=== PATIENT | male | born 1960 | race African-American/Black ===

== ENCOUNTER 2018-08-28 14:42 | Inpatient (IN) | payer OTHER ==
[2018-08-28 15:42] VITALS: BMI 25.9
--- NOTE | 2018-08-28 16:35 | HP ---
"COWS - Scale Resting Pulse: 0= DC 80 or Below Sweatin=Flushed/Facial Moisture Restless Observation: 1= Difficult to Sit Still Pupil Size: 2= Moderately Dilated Bone or Joint Aches: 1= Mild Discomfort Runny Nose/ Eye Tearin= Runny Nose/Eyes GI Upset > 30mins: 0= None Tremor Observation: 2= Slight Tremor Visible Yawning Observation: 1= 1-2x During Session Anxiety or Irritability: 1=Feels Anxious/Irritable Goose Flesh Skin: 0=Smooth Skin COWS Score: 12 CIWA Score - Admission Criteria OASAS Guidelines: Admission for Medically Managed Detox: Requires at least one of the followin. CIWA greater than 12 2. Seizures within the past 24 hours 3. Delirium tremens within the past 24 hours 4. Hallucinations within the past 24 hours 5. Acute intervention needed for co occurring medical disorder 6. Acute intervention needed for co occurring psychiatric disorder 7. Severe withdrawal that cannot be handled at a lower level of care (continued vomiting, continued diarrhea, abnormal vital signs) requiring intravenous medication and/or fluids 8. Admission ROS [facility] Chief Complaint: Having withdrawals from heroin. Allergies/Adverse Reactions: Allergies Allergy/AdvReac Type Severity Reaction Status Date / Time pork derived (porcine) Allergy Unknown Rash Verified 08/28/18 15:34 No Known Drug Allergies Allergy Verified 08/28/18 15:34 History of Present Illness: 57 yom states here for heroin detox. Last in [facility] in 2014. Heroin use began at age 10. Approx 3 bundles/day x past 6-7 months. Uses IV. States does not share needles or works. Cocaine use began at age 13. Uses approx 1 bag/ day IV. Nicotine use began at age 11. Denies alcohol use. Denies hx overdoses, seizures or blackouts. Does not have a Narcan Kit at home but willing to accept. PMHx: HTN - last took meds 2 days ago. MHHx: Depression. Denies thoughts of harming self or others. Last visit w/ MH Provider 2012. Search Terms: Carlos Teja, 1960 Search Date: 08/28/2018 04:29:19 PM The Drug Utilization Report below displays all of the controlled substance prescriptions, if any, that your patient has filled in the last twelve months. The information displayed on this report is compiled from pharmacy submissions to the Department, and accurately reflects the information as submitted by the pharmacies. This report was requested by: Yareli Reeves | Reference #: [id number] There are no results for the search terms that you entered. Exam Limitations: No Limitations - Ebola screening Have you traveled outside of the country in the last 21 days: No Have you had contact with anyone from an Ebola affected area: No Have you been sick,other than usual withdrawal symptoms: No (Denies recent exposure to measles) Do you have a fever: No - Review of Systems Constitutional: Chills, Changes in sleep (Difficulty staying asleep) EENT: reports: Nose Congestion Respiratory: reports: Cough (x 3 days - states productive of phlegm. States took an antibiotic) Cardiac: reports: No Symptoms Reported GI: reports: No Symptoms Reported : reports: No Symptoms Reported Musculoskeletal: reports: Joint Pain (Occ achy knees.) Integumentary: reports: Other (TTrack maldonado) Neuro: reports: No Symptoms reported Endocrine: reports: No Symptoms Reported Hematology: reports: No Symptoms Reported Psychiatric: reports: Judgement Intact, Orientated x3 (Missed date by 1 day), Agitated, Depressed (Denies thoughts of harming self or others) Patient History - Patient Medical History Hx Anemia: No Hx Asthma: No Hx Chronic Obstructive Pulmonary Disease (COPD): No Hx Cancer: No Hx Cardiac Disorders: No Hx Congestive Heart Failure: No Hx Hypertension: Yes Hx Hypercholesterolemia: No Hx Pacemaker: No HX Cerebrovascular Accident: No Hx Seizures: No Hx Dementia: No Hx Diabetes: No Hx Gastrointestinal Disorders: No Hx Liver Disease: No Hx Genitourinary Disorders: No Hx Sexually Transmitted Disorders: No Hx Renal Disease (ESRD): No Hx Thyroid Disease: No Hx Human Immunodeficiency Virus (HIV): No Hx Hepatitis C: Yes (TREATED) Hx Depression: No Hx Suicide Attempt: No Hx Bipolar Disorder: No Hx Schizophrenia: No - Patient Surgical History Past Surgical History: No Hx Neurologic Surgery: No Hx Cataract Extraction: No Hx Cardiac Surgery: No Hx Lung Surgery: No Hx Breast Surgery: No Hx Breast Biopsy: No Hx Abdominal Surgery: No Hx Appendectomy: No Hx Cholecystectomy: No Hx Genitourinary Surgery: No Hx Section: No Hx Orthopedic Surgery: No Anesthesia Reaction: No - PPD History Previous Implant?: Yes Documented Results: Positive w/o proof (States Rx'd w/ INH in 1992) PPD to be Administered?: No - Smoking Cessation Smoking history: Current every day smoker Have you smoked in the past 12 months: Yes Aproximately how many cigarettes per day: 10 Hx Chewing Tobacco Use: No Initiated information on smoking cessation: Yes 'Breaking Loose' booklet given: 08/28/18 - Substance & Tx. History Hx Alcohol Use: No Hx Substance Use: Yes Substance Use Type: Cocaine, Heroin Hx Substance Use Treatment: Yes (deto, rehab, Past MMTP in 2011) - Substances abused Heroin Substance route: Injection Frequency: Daily Amount used: 3 BUNDLES Age of first use: 10 Date of last use: 08/27/18 Cocaine Substance route: Injection Frequency: Daily Family Disease History - Family Disease History Family Disease History: Heart Disease: Father (HTN), Mother (HTN), Brother (HTN) , Sister (HTN) Admission Physical Exam [facility] - Vital Signs Vital Signs: Vital Signs - 24 hr 08/28/18 08/28/18 15:31 16:16 Temperature 97.6 F 97.6 F Pulse Rate 71 71 Respiratory 20 20 Rate Blood Pressure 165/105 H 165/105 H - Physical General Appearance: Yes: Mild Distress, Sweating (Increased facial moisture) HEENTM: Yes: EOMI (Jerking movements of eyes on lateral gaze), Hearing grossly Normal, Normocephalic, Normal Voice, CHRISTIAN (Pupils = 3 mm), Pharynx Normal Respiratory: Yes: Lungs Clear, Normal Breath Sounds, No Respiratory Distress, Other (Cough productive of yellowish phlegm) Neck: Yes: No masses,lesions,Nodules, Supple Breast: Yes: Breast Exam Deferred Cardiology: Yes: Regular Rate, Murmur Abdominal: Yes: Non Tender, Soft, Increased Bowel Sounds Genitourinary: Yes: Within Normal Limits Back: Yes: Normal Inspection Musculoskeletal: Yes: full range of Motion, Gait Steady Extremities: Yes: Normal Capillary Refill, Tremors (Mild tremors) Neurological: Yes: evp and chief operating officer II-XII NML intact (Jerking movements of eyes on lateral gaze), Fully Oriented, Alert, Motor Strength 5/5, Normal Mood/Affect Integumentary: Yes: Normal Color, Warm, Track Maldonado (Old and new track maldonado) Lymphatic: Yes: Within Normal Limits - Diagnostic (1) Cocaine use disorder Current Visit: Yes Status: Acute (2) Murmur, cardiac Current Visit: Yes Status: Acute (3) History of positive PPD Current Visit: Yes Status: Acute (4) Cough Current Visit: Yes Status: Acute (5) Nystagmus Current Visit: Yes Status: Acute (6) Essential hypertension Current Visit: No Status: Active (7) Nicotine dependence Current Visit: No Status: Acute (8) Opioid dependence with withdrawal Current Visit: No Status: Acute (9) Abnormal EKG Current Visit: Yes Status: Acute Comment: Occ PVC's. (L) VH, Prolonged QT, Cleared for Admission S - Detox or Rehab [facility] Level of Care: Medically Managed Detox Regimen/Protocol: Methadone Claeared for Rehab Admission: No Breathalyzer - Breathalyzer Breathalyzer: 0 Urine Drug Screen - Test Device Lot number: [id number] Expiration date: 05/21/20 - Control Is test valid?: Yes - Results Drug screen NEGATIVE: No Urine drug screen results: KUMAR-Cocaine, FEN-Fentanyl, MOP-Opiates, OXY-Oxycodone Inpatient Rehab Admission - Rehab Decision to Admit Inpatient rehab admission?: No"
[2018-08-28] MEDS ORDERED: IBUPROFEN 400 MG TABLET (FP) PO PRN (17:01)
[2018-08-28] MEDS ORDERED: MAGNESIUM HYDROX 2400MG/30ML ORAL SUSPENSION 30 ML CUP PO PRN (17:01)
[2018-08-28] MEDS ORDERED: METHOCARBAMOL 500 MG TABLET PO PRN (17:01)
[2018-08-28] MEDS ORDERED: MAG HYDROX/AL HYDROX/SIMETH 30 ML UNIT-DOSE CUP PO PRN (17:01)
[2018-08-28] MEDS ORDERED: BISMUTH SUBSALICYLATE 524 MG/30 ML UD PO PRN (17:01)
[2018-08-28] MEDS ORDERED: NICOTINE POLACRILEX 2 MG GUM BUC PRN (17:01)
[2018-08-28] MEDS ORDERED: MENTHOL/PHENOL 1 EACH UD MM PRN (17:01)
[2018-08-28] MEDS ORDERED: PROCHLORPERAZINE MALEATE 5 MG TABLET PO PRN (17:01)
[2018-08-28] MEDS ORDERED: MAGNESIUM CITRATE 300 ML BOTTLE PO PRN (17:01)
[2018-08-28] MEDS ORDERED: ACETAMINOPHEN 325 MG TABLET (FP) PO PRN ×2 (17:01)
[2018-08-28] MEDS ORDERED: MELATONIN 5 MG TABLETS PO PRN (17:01)
[2018-08-28] MEDS ORDERED: METHADONE HCL 10 MG TABLET (FOR DETOX USE ONLY) PO ONE ×2 (18:15→23:00)
[2018-08-28] MEDS ORDERED: cloNIDine HCL 0.1 MG TABLET PO ONE (18:15)
[2018-08-28] MEDS: guaiFENesin 200 MG/10 ML 10 ML UNIT-DOSE CUPS PO SCH ×2 (18:41→23:06)
[2018-08-28] MEDS: THIAMINE HCL 100 MG TABLET (FP) PO SCH (23:07)
[2018-08-29] MEDS: guaiFENesin 200 MG/10 ML 10 ML UNIT-DOSE CUPS PO SCH ×4 (07:13→23:20)
[2018-08-29] MEDS ORDERED: METHADONE HCL 10 MG TABLET (FOR DETOX USE ONLY) PO ONE (10:00)
[2018-08-29] MEDS ORDERED: cloNIDine HCL 0.1 MG TABLET PO SCH (10:00)
[2018-08-29] MEDS ORDERED: LISINOPRIL 10 MG TABLET (FP) PO SCH (10:00)
[2018-08-29] MEDS: PRENATAL VITAMINS W/ FOLIC ACID TABLET (FP) PO SCH (10:43)
[2018-08-29] MEDS: amLODIPine BESYLATE 10 MG TABLET (FP) PO SCH (10:43)
[2018-08-29] MEDS: NICOTINE 14 MG/24 HOURS TOPICAL PATCH TD SCH (10:44)
[2018-08-29] MEDS: clonazePAM 0.5 MG TABLET PO PRN ×2 (10:48→17:50)
[2018-08-29 11:39] LABS: HEMATOCRIT 36.2 % (35.4-49); HEMOGLOBIN 12.4 GM/dL (11.7-16.9); MCH 31.8 pg (25.7-33.7); MCHC 34.4 g/dl (32.0-35.9); MEAN CELL VOLUME 92.6 fl (80-96); MEAN PLT VOLUME 7.2 fl (7.5-11.1); PLATELET COUNT 266 K/MM3 (134-434); RBC 3.91 M/mm3 (4.00-5.60); RDW 12.5 % (11.9-15.9); WHITE BLOOD COUNT 7.6 K/mm3 (4.0-10.0)
[2018-08-29 11:41] LABS: BILIRUBIN,TOTAL 0.6 mg/dL (0.2-1); CALCIUM 8.7 mg/dL (8.5-10.1); CREATININE 0.9 mg/dL (0.55-1.3); POTASSIUM 3.6 mmol/L (3.5-5.1); TOT PROT 6.9 g/dl (6.4-8.2)
--- NOTE | 2018-08-29 17:32 | PN ---
BHS COWS - Scale Resting Pulse: 0= MS 80 or Below Sweatin= Chills/Flushing Restless Observation: 0= Sits Still Pupil Size: 0= Normal to Room Light Bone or Joint Aches: 0= None Runny Nose/ Eye Tearin= None GI Upset > 30mins: 1= Stomach Cramp Tremor Observation of Outstretched Hands: 2= Slight Tremor Visible Yawning Observation: 2= >3x During Session Anxiety or Irritability: 2=Irritable/Anxious Goose Flesh Skin: 3=Piloerection COWS Score: 11 S Progress Note (SOAP) Subjective: Fatigue, Sweating, Tremors. Objective: PATIENT A & O X 3. IN NO ACUTE DISTRESS. PATIENT DENIES CHEST PAIN AND DIZZINESS. 08/29/18 17:33 Vital Signs Temperature 97.4 F L 08/29/18 16:00 Pulse Rate 53 L 08/29/18 16:00 Respiratory Rate 18 08/29/18 16:00 Blood Pressure 196/97 H 08/29/18 16:00 O2 Sat by Pulse Oximetry (%) Laboratory Tests 08/29/18 08/29/18 08/29/18 08:00 08:00 08:00 WBC 7.6 RBC 3.91 L Hgb 12.4 Hct 36.2 D MCV 92.6 MCH 31.8 MCHC 34.4 RDW 12.5 Plt Count 266 MPV 7.2 L Sodium 142 Potassium 3.6 Chloride 106 Carbon Dioxide 31 Anion Gap 6 L BUN 10 Creatinine 0.9 Est GFR (CKD-EPI)AfAm 107.97 Est GFR (CKD-EPI)NonAf 93.16 Random Glucose 84 Calcium 8.7 Total Bilirubin 0.6 AST 17 ALT 17 Alkaline Phosphatase 96 Total Protein 6.9 Albumin 3.0 L RPR Titer Nonreactive LABS NOTED. Assessment: 08/29/18 17:39 WITHDRAWAL SYMPTOMS. HYPERTENSION. Plan: CONTINUE DETOX. INCREASE LISINOPRIL 10 10 MG PO BID FOR ELEVATED BP DESPITE TREATMENT. INCREASE CLONIDINE TO 0.3 MG PO DAILY FOR ELEVATED BP DESPITE TREATMENT.
[2018-08-29] MEDS ORDERED: cloNIDine HCL 0.1 MG TABLET PO ONE (17:38)
[2018-08-29] MEDS: THIAMINE HCL 100 MG TABLET (FP) PO SCH (23:16)
[2018-08-29] MEDS: LISINOPRIL 10 MG TABLET (FP) PO SCH (23:16)
[2018-08-30] MEDS: guaiFENesin 200 MG/10 ML 10 ML UNIT-DOSE CUPS PO SCH ×2 (05:57→10:28)
[2018-08-30] MEDS ORDERED: METHADONE HCL 10 MG TABLET (FOR DETOX USE ONLY) PO ONE (10:00)
[2018-08-30] MEDS ORDERED: cloNIDine HCL 0.1 MG TABLET PO SCH (10:00)
[2018-08-30] MEDS: NICOTINE 14 MG/24 HOURS TOPICAL PATCH TD SCH (10:28)
[2018-08-30] MEDS: clonazePAM 0.5 MG TABLET PO PRN ×2 (10:28→17:10)
[2018-08-30] MEDS: PRENATAL VITAMINS W/ FOLIC ACID TABLET (FP) PO SCH (10:28)
[2018-08-30] MEDS: LISINOPRIL 10 MG TABLET (FP) PO SCH (10:28)
[2018-08-30] MEDS: amLODIPine BESYLATE 10 MG TABLET (FP) PO SCH (10:28)
--- NOTE | 2018-08-30 12:27 | EKG ---
Test Reason : Blood Pressure : / mmHG Vent. Rate : 060 BPM Atrial Rate : 060 BPM P-R Int : 144 ms QRS Dur : 094 ms QT Int : 494 ms P-R-T Axes : 053 036 003 degrees QTc Int : 494 ms SINUS RHYTHM WITH OCCASIONAL PREMATURE VENTRICULAR COMPLEXES VOLTAGE CRITERIA FOR LEFT VENTRICULAR HYPERTROPHY PROLONGED QT ABNORMAL ECG WHEN COMPARED WITH ECG OF 15-FEB-2015 08:55, PREMATURE VENTRICULAR COMPLEXES ARE NOW PRESENT NON-SPECIFIC CHANGE IN ST SEGMENT IN ANTERIOR LEADS NONSPECIFIC T WAVE ABNORMALITY NO LONGER EVIDENT IN LATERAL LEADS Confirmed by LISSY WEAVER MD ([id number]) on 08/30/2018 12:27:00 PM Referred By: Confirmed By:LISSY WEAVER MD
[2018-08-30] MEDS ORDERED: guaiFENesin 200 MG/10 ML 10 ML UNIT-DOSE CUPS PO PRN (13:22)
--- NOTE | 2018-08-30 13:24 | PN ---
BHS COWS - Scale Resting Pulse: 0= NC 80 or Below Sweatin= Chills/Flushing Restless Observation: 1= Difficult to Sit Still Pupil Size: 0= Normal to Room Light Bone or Joint Aches: 1= Mild Discomfort Runny Nose/ Eye Tearin= Nasal Congestion GI Upset > 30mins: 1= Stomach Cramp Tremor Observation of Outstretched Hands: 1= Tremor [place], Not Seen Yawning Observation: 1= 1-2x During Session Anxiety or Irritability: 1=Feels Anxious/Irritable Goose Flesh Skin: 0=Smooth Skin COWS Score: 8 S Progress Note (SOAP) Subjective: feeling better today doing well with methadone detox regimen Objective: 08/30/18 13:25 Vital Signs Temperature 99.3 F 08/30/18 10:15 Pulse Rate 54 L 08/30/18 10:15 Respiratory Rate 20 08/30/18 10:15 Blood Pressure 199/93 H 08/30/18 10:15 O2 Sat by Pulse Oximetry (%) Laboratory Last Values WBC 7.6 K/mm3 (4.0-10.0) 08/29/18 08:00 RBC 3.91 M/mm3 (4.00-5.60) L 08/29/18 08:00 Hgb 12.4 GM/dL (11.7-16.9) 08/29/18 08:00 Hct 36.2 % (35.4-49) D 08/29/18 08:00 MCV 92.6 fl (80-96) 08/29/18 08:00 MCH 31.8 pg (25.7-33.7) 08/29/18 08:00 MCHC 34.4 g/dl (32.0-35.9) 08/29/18 08:00 RDW 12.5 % (11.9-15.9) 08/29/18 08:00 Plt Count 266 K/MM3 (134-434) 08/29/18 08:00 MPV 7.2 fl (7.5-11.1) L 08/29/18 08:00 Sodium 142 mmol/L (136-145) 08/29/18 08:00 Potassium 3.6 mmol/L (3.5-5.1) 08/29/18 08:00 Chloride 106 mmol/L (98-107) 08/29/18 08:00 Carbon Dioxide 31 mmol/L (21-32) 08/29/18 08:00 Anion Gap 6 MMOL/L (8-16) L 08/29/18 08:00 BUN 10 mg/dL (7-18) 08/29/18 08:00 Creatinine 0.9 mg/dL (0.55-1.3) 08/29/18 08:00 Est GFR (CKD-EPI)AfAm 107.97 08/29/18 08:00 Est GFR (CKD-EPI)NonAf 93.16 08/29/18 08:00 Random Glucose 84 mg/dL (74-106) 08/29/18 08:00 Calcium 8.7 mg/dL (8.5-10.1) 08/29/18 08:00 Total Bilirubin 0.6 mg/dL (0.2-1) 08/29/18 08:00 AST 17 U/L (15-37) 08/29/18 08:00 ALT 17 U/L (13-61) 08/29/18 08:00 Alkaline Phosphatase 96 U/L (45-117) 08/29/18 08:00 Total Protein 6.9 g/dl (6.4-8.2) 08/29/18 08:00 Albumin 3.0 g/dl (3.4-5.0) L 08/29/18 08:00 RPR Titer Nonreactive (NONREACTIVE) 08/29/18 08:00 lab noted 08/30/18 13:32 increase lisinopril from 10 mg bid to 20 mg bid continue amlodipine patient received one dose of clonidine 0.3 mg today addition al 0.1 mg po q6h prn x 1 days additional hctz 25 mg po daily patient has low pulse rate both eyes sensitive to light tired 08/30/18 13:45 08/30/18 13:46 08/30/18 13:47 Assessment: 08/30/18 13:52 opiate withdrawal sx hypertension increase lisinopril to 20 mg po bid continue amlodipine clonidine 0.1 mg po q6h prn hctz 25 mg po Plan: continue detox
[2018-08-30] MEDS ORDERED: cloNIDine HCL 0.1 MG TABLET PO PRN ×2 (13:29→13:31)
[2018-08-30 13:55] LABS: PH,URINE 6.5 (5.0-8.0); URINE APPEARANCE CLEAR; URINE BILIRUBIN NEGATIVE (NEGATIVE); URINE COLOR YELLOW; URINE GLUCOSE (UA) NEGATIVE (NEGATIVE); URINE KETONE NEGATIVE (NEGATIVE); URINE LEUK ESTERASE NEGATIVE (NEGATIVE); URINE NITRITE NEGATIVE (NEGATIVE); URINE PROTEIN NEGATIVE (NEGATIVE)
[2018-08-30] MEDS: HYDROCHLOROTHIAZIDE 25 MG TABLET (FP) PO ONE ×2 (15:12→15:22)
[2018-08-30] MEDS: LISINOPRIL 20 MG TABLET (FP) PO SCH (23:53)
[2018-08-30] MEDS: THIAMINE HCL 100 MG TABLET (FP) PO SCH (23:54)
[2018-08-31] MEDS: clonazePAM 0.5 MG TABLET PO PRN ×3 (05:33→18:19)
[2018-08-31] MEDS ORDERED: HYDROCHLOROTHIAZIDE 25 MG TABLET (FP) PO SCH (10:00)
[2018-08-31] MEDS ORDERED: METHADONE HCL 5 MG TABLET (FOR DETOX USE ONLY) PO ONE (10:00)
[2018-08-31] MEDS ORDERED: cloNIDine HCL 0.1 MG TABLET PO SCH (10:00)
[2018-08-31] MEDS: amLODIPine BESYLATE 10 MG TABLET (FP) PO SCH (10:43)
[2018-08-31] MEDS: NICOTINE 14 MG/24 HOURS TOPICAL PATCH TD SCH (10:43)
[2018-08-31] MEDS: LISINOPRIL 20 MG TABLET (FP) PO SCH ×2 (10:43→22:23)
[2018-08-31] MEDS: PRENATAL VITAMINS W/ FOLIC ACID TABLET (FP) PO SCH (10:43)
--- NOTE | 2018-08-31 12:03 | PN ---
BHS COWS - Scale Resting Pulse: 0= SD 80 or Below Sweatin= Chills/Flushing Restless Observation: 0= Sits Still Pupil Size: 0= Normal to Room Light Bone or Joint Aches: 1= Mild Discomfort Runny Nose/ Eye Tearin= Nasal Congestion GI Upset > 30mins: 1= Stomach Cramp Tremor Observation of Outstretched Hands: 0= None Yawning Observation: 0= None Anxiety or Irritability: 1=Feels Anxious/Irritable Goose Flesh Skin: 0=Smooth Skin COWS Score: 5 BHS Progress Note (SOAP) Subjective: reporting that long history of bipolar taking medication patient requests to be seen by a psychiatrist feeling better today patient preferring to leave the detox unit tomorrow estimated discharged date 09/01/18 Objective: 08/31/18 14:25 Vital Signs Temperature 97.2 F L 08/31/18 13:37 Pulse Rate 77 08/31/18 13:37 Respiratory Rate 18 08/31/18 13:37 Blood Pressure 147/81 08/31/18 13:37 O2 Sat by Pulse Oximetry (%) Laboratory Last Values WBC 7.6 K/mm3 (4.0-10.0) 08/29/18 08:00 RBC 3.91 M/mm3 (4.00-5.60) L 08/29/18 08:00 Hgb 12.4 GM/dL (11.7-16.9) 08/29/18 08:00 Hct 36.2 % (35.4-49) D 08/29/18 08:00 MCV 92.6 fl (80-96) 08/29/18 08:00 MCH 31.8 pg (25.7-33.7) 08/29/18 08:00 MCHC 34.4 g/dl (32.0-35.9) 08/29/18 08:00 RDW 12.5 % (11.9-15.9) 08/29/18 08:00 Plt Count 266 K/MM3 (134-434) 08/29/18 08:00 MPV 7.2 fl (7.5-11.1) L 08/29/18 08:00 Sodium 142 mmol/L (136-145) 08/29/18 08:00 Potassium 3.6 mmol/L (3.5-5.1) 08/29/18 08:00 Chloride 106 mmol/L (98-107) 08/29/18 08:00 Carbon Dioxide 31 mmol/L (21-32) 08/29/18 08:00 Anion Gap 6 MMOL/L (8-16) L 08/29/18 08:00 BUN 10 mg/dL (7-18) 08/29/18 08:00 Creatinine 0.9 mg/dL (0.55-1.3) 08/29/18 08:00 Est GFR (CKD-EPI)AfAm 107.97 08/29/18 08:00 Est GFR (CKD-EPI)NonAf 93.16 08/29/18 08:00 Random Glucose 84 mg/dL (74-106) 08/29/18 08:00 Calcium 8.7 mg/dL (8.5-10.1) 08/29/18 08:00 Total Bilirubin 0.6 mg/dL (0.2-1) 08/29/18 08:00 AST 17 U/L (15-37) 08/29/18 08:00 ALT 17 U/L (13-61) 08/29/18 08:00 Alkaline Phosphatase 96 U/L (45-117) 08/29/18 08:00 Total Protein 6.9 g/dl (6.4-8.2) 08/29/18 08:00 Albumin 3.0 g/dl (3.4-5.0) L 08/29/18 08:00 Urine Color Yellow 08/30/18 09:48 Urine Appearance Clear 08/30/18 09:48 Urine pH 6.5 (5.0-8.0) 08/30/18 09:48 Ur Specific [place] 1.023 (1.010-1.035) 08/30/18 09:48 Urine Protein Negative (NEGATIVE) 08/30/18 09:48 Urine Glucose (UA) Negative (NEGATIVE) 08/30/18 09:48 Urine Ketones Negative (NEGATIVE) 08/30/18 09:48 Urine Blood Negative (NEGATIVE) 08/30/18 09:48 Urine Nitrite Negative (NEGATIVE) 08/30/18 09:48 Urine Bilirubin Negative (NEGATIVE) 08/30/18 09:48 Urine Urobilinogen 1.0 mg/dL (0.2-1.0) 08/30/18 09:48 Ur Leukocyte Esterase Negative (NEGATIVE) 08/30/18 09:48 RPR Titer Nonreactive (NONREACTIVE) 08/29/18 08:00 lab noted Assessment: 08/31/18 14:25 withdrawal sx Plan: continue detox
--- NOTE | 2018-08-31 17:30 | CONSULT ---
[facility] Psychiatric Consult - Data Date of interview: 08/31/18 Admission source: [facility] Identifying data: Readmission to [facility] for this 57 y/o AA male self- referred for detoxification ([facility]). Examined at [address] [place] [address]. Patient is single, a father of one, domiciled, unemployed and supported on SSI benefits. Substance Abuse History: Confirmed by patient in this interview. Details in current [facility] report : Smoking history: Current every day smoker. Have you smoked in the past 12 months: Yes. Aproximately how many cigarettes per day: 10. Hx Chewing Tobacco Use: No. Initiated information on smoking cessation: Yes. 'Breaking Loose' booklet given: 08/28/18. - Substance & Tx. History. Hx Alcohol Use: No. Hx Substance Use: Yes. Substance Use Type: Cocaine, Heroin. Hx Substance Use Treatment: Yes (deto, rehab, Past MMTP in 2011). - Substances abused. Heroin. Substance route: Injection. Frequency: Daily. Amount used : 3 BUNDLES. Age of first use: 10. Date of last use: 08/27/18. Cocaine. Substance route: Injection. Frequency: Daily Medical History: Hypertension and hepatitis C. Patient aknowledges a history of positive PPD and treatment with INH + B6 (1992). Psychiatric History: History of psychiaric hospitalizations at [facility] (2009 + 2011). Patient reports diagnoses of MDD + Bipolar Disorder. Used to be treated with sertraline + wellbutrin + paxil + quetiapine. Has been off psychotropic medications since 2012. Mr Lezama denies recent/ current history of OPD care. No reported history of suicide attempts. Physical/Sexual Abuse/Trauma History: Denies. Additional Comment: Urine drug screen results: KUMAR-Cocaine, FEN-Fentanyl, MOP- Opiates, OXY-Oxycodone. Noted. Mental Status Exam - Mental Status Exam Alert and Oriented to: Time, Place, Person Cognitive Function: Good Patient Appearance: Well Groomed Mood: Withdrawn Affect: Appropriate, Normal Range Patient Behavior: Fatigued, Cooperative Speech Pattern: Clear, Appropriate Voice Loudness: Normal Thought Process: Goal Oriented Thought Disorder: Not Present Hallucinations: Denies Suicidal Ideation: Denies Homicidal Ideation: Denies Insight/Judgement: Poor Sleep: Poorly, Difficulty falling asleep Appetite: Good Muscle strength/Tone: Normal Gait/Station: Normal Psychiatric Findings - Problem List ([place] 1, 2,3) (1) Opioid dependence with withdrawal Current Visit: Yes Status: Acute (2) Benzodiazepine dependence Current Visit: Yes Status: Chronic (3) Cocaine use disorder Current Visit: Yes Status: Chronic (4) Nicotine dependence Current Visit: Yes Status: Chronic (5) Drug-induced mood disorder Current Visit: Yes Status: Chronic (6) History of schizoaffective disorder Current Visit: Yes Status: Chronic (7) Insomnia Current Visit: Yes Status: Chronic (8) Non-compliance Current Visit: Yes Status: Chronic - Initial Treatment Plan Initial Treatment Plan: Patient states to this video game script writer that he wanted to see the psychiatrist to ensure that he gets a script for a 30-day supply of clonazepam. Redirected to the initial medical prescriber. Psychoeducation. NA meetings. Detoxification. Relapse prevention (MAT) : discussed in this session. Patient expresses NO interest (now asymptomatic) for resumption of mood stabilizers, atypical agents or antidepressant medications. Observation.
[2018-08-31] MEDS: THIAMINE HCL 100 MG TABLET (FP) PO SCH (22:23)
[2018-09-01] MEDS: clonazePAM 0.5 MG TABLET PO PRN (02:30)
[2018-09-01] MEDS ORDERED: METHADONE HCL 5 MG TABLET PO ONE (06:00)
[2018-09-01 06:27] VITALS: TEMP 97.3
[2018-09-01] MEDS ORDERED: cloNIDine HCL 0.1 MG TABLET PO ONE (06:30)
[2018-09-01] MEDS ORDERED: METHADONE HCL 5 MG TABLET (FOR DETOX USE ONLY) PO ONE (06:45)
[2018-09-01 07:12] VITALS: BP 168/84; PULSE 70
[2018-09-01] MEDS ORDERED: METHADONE HCL 10 MG TABLET (FOR DETOX USE ONLY) PO ONE (10:00)
[2018-09-02] MEDS ORDERED: METHADONE HCL 5 MG TABLET PO ONE (06:00)
== END 2018-09-01 07:22 | disposition home or self-care (01) | DRG 773 ==
LOC: YASAS 14:42 → Y3N 17:47
PROVIDERS: ADMIT Surgery; ATTEND Surgery
PROC: HZ2ZZZZ Detoxification Services for Substance Abuse Treatment (ICD-10-PCS; principal; 2018-08-28)
DX: F11.23 Opioid dependence with withdrawal (principal); F13.20 Sedative, hypnotic or anxiolytic dependence, uncomplicated; F14.20 Cocaine dependence, uncomplicated; F17.210 Nicotine dependence, cigarettes, uncomplicated; F19.24 Other psychoactive substance dependence with psychoactive substance-induced mood disorder; I10 Essential (primary) hypertension; G47.00 Insomnia, unspecified; B18.2 Chronic viral hepatitis C; R01.1 Cardiac murmur, unspecified; R05 Cough; R76.11 Nonspecific reaction to tuberculin skin test without active tuberculosis; R94.31 Abnormal electrocardiogram [ECG] [EKG]; Z91.19 Patient's noncompliance with other medical treatment and regimen
CPT/HCPCS: 36415; 71046-TC-FY; 80053; 81003; 85027; 86593; 93005; 93010; J0735